=== PATIENT | female | born 1950 | race Hispanic/Latino ===

== ENCOUNTER 2016-07-11 21:51 | Emergency (ER) | payer MEDICARE ==
[2016-07-11 23:19] LABS: Basophils % (Auto) 0.8 % (0.0-1.8); Eosinophils % (Auto) 2.2 % (0.0-4.3); Mean Corpuscular HGB Conc 30 % (30-34); Mean Corpuscular Volume 78 fl (79-97); Platelet Count 285 K/mm3 (140-440); Red Blood Count 4.23 M/mm3 (3.65-5.03); Red Cell Distribution Width 18.1 % (13.2-15.2); White Blood Count 13.1 K/mm3 (4.5-11.0)
[2016-07-11 23:27] LABS: Hematocrit 32.8 % (30.3-42.9); Hemoglobin 9.9 gm/dl (10.1-14.3); Mean Corpuscular Hemoglobin 24 pg (28-32)
[2016-07-11 23:28] LABS: INR 1.89 (0.87-1.13)
[2016-07-11 23:29] LABS: Partial Thromboplastin Time 38.3 Sec. (24.2-36.6)
[2016-07-11 23:43] LABS: Albumin 3.7 g/dL (3.9-5); Albumin/Globulin Ratio 0.9 %; BUN/Creatinine Ratio 22.5; Bilirubin,Total 0.4 mg/dL (0.1-1.2); Calcium 9.1 mg/dL (8.4-10.2); Chloride 101.5 mmol/L (98-107); Potassium 4.2 mmol/L (3.6-5.0); Total Protein 7.8 g/dL (6.3-8.2)
[2016-07-12] MEDS ORDERED: NACL 0.9% 1000 ML 1,000 ML ONE (03:39)
[2016-07-12] MEDS: NACL 0.9% 1000 ML 1,000 ML IV ONE (03:53)
--- NOTE | 2016-07-12 06:49 | Emergency Department Report ---
HPI - General Chief Complaint: GI Bleed - HPI HPI: This is a 65-year-old female who presents to the emergency department with complaint of rectal bleeding seen during bowel movements over the past 24 hours however patient says that she had another bowel movement while in the emergency department and there was no gross blood seen. She was concerned as there was dark red blood with some clots. Patient says she had a colonoscopy 4- 5 years ago with a setter machine, Dr. Maurer, and was told at that time that she had a small internal hemorrhoid. She denies any back pain, abdominal pain, rectal pain, nausea, vomiting or fever. Patient has a history of atrial fibrillation and is on anticoagulation. She also has a history of arthritis, diabetes, hypertension, hypothyroidism and high cholesterol. Primary care doctor is Dr. Delgado. No recent travel or sick contacts at home. She did not take anything for symptoms prior to presentation. ED Past Medical Hx - Past Medical History Previous Medical History?: Yes Hx Hypertension: Yes Hx Congestive Heart Failure: No Hx Diabetes: Yes Hx Arthritis: Yes Hx Asthma: No Hx COPD: No Additional medical history: high cholesterol. hypothyroid. "increased uric acid". tachycardia - Surgical History Past Surgical History?: Yes Hx Appendectomy: Yes Additional Surgical History: hysterectomy - Social History Smoking Status: Never Smoker Substance Use Type: None - Medications Home Medications: Home Medications Medication Instructions Recorded Confirmed Last Taken Type Febuxostat (Nf) [Uloric (Nf)] 40 mg PO DAILY 04/26/14 04/26/14 Unknown History Levothyroxine [Synthroid] 100 mcg PO Q48HR 04/26/14 04/26/14 Unknown History Levothyroxine [Synthroid] 112 mcg PO Q48H 04/26/14 04/26/14 Unknown History Metoprolol [Lopressor TAB] 200 mg PO DAILY 04/26/14 04/26/14 Unknown History Rosuvastatin Calcium [Crestor] 20 mg PO DAILY 04/26/14 04/26/14 Unknown History Valsartan/Hydrochlorothiazide 1 tab PO DAILY 04/26/14 04/26/14 Unknown History [Valsartan-Hctz 160-25 mg] Rivaroxaban [Xarelto] 15 mg PO BIDDIAB 30 Days 05/11/14 Unknown Rx ED Review of Systems ROS: Stated complaint: RECTAL BLEEDING Other details as noted in HPI Comment: All other systems reviewed and negative Constitutional: denies: chills, fever Eyes: denies: eye pain, eye discharge, vision change ENT: denies: ear pain, throat pain Respiratory: denies: cough, shortness of breath, wheezing Cardiovascular: denies: chest pain, palpitations Gastrointestinal: other (Rectal bleed). denies: abdominal pain, nausea, diarrhea Genitourinary: denies: urgency, dysuria, discharge Musculoskeletal: denies: back pain, joint swelling, arthralgia Skin: denies: rash, lesions Neurological: denies: headache, weakness, paresthesias Physical Exam - Physical Exam Vital Signs: Vital Signs 07/11/16 07/11/16 07/12/16 22:12 22:15 03:31 Temperature 97.7 F Pulse Rate 84 83 83 Respiratory 20 16 16 Rate Blood Pressure 127/86 Blood Pressure 130/70 130/70 [Left] O2 Sat by Pulse 98 100 100 Oximetry 07/12/16 05:35 Temperature Pulse Rate 86 Respiratory 18 Rate Blood Pressure Blood Pressure 110/51 [Left] O2 Sat by Pulse 100 Oximetry Physical Exam: GENERAL: The patient is well-developed well-nourished. HEENT: Normocephalic. Atraumatic. Extraocular motions are intact. Patient has moist mucous membranes. Pupils equal reactive to light bilaterally. NECK: Supple. Trachea is midline. CHEST/LUNGS: Clear to auscultation. There is no respiratory distress noted. HEART/CARDIOVASCULAR: Regular. There is no tachycardia. There is no gallop rub or murmur. ABDOMEN: Abdomen is soft, nontender. Patient has normal bowel sounds. There is no abdominal distention. Morbidly obese habitus. SKIN: There is no rash. There is no diaphoresis. NEURO: The patient is awake, alert, and oriented. The patient is cooperative. The patient has no focal neurologic deficits. The patient has normal speech. MUSCULOSKELETAL: There is no tenderness or deformity. There is no limitation range of motion. There is no evidence of acute injury. RECTAL: No lesions seen. No gross blood. Stool positive for guaiac testing. ED Course Vital Signs 07/11/16 07/11/16 07/12/16 22:12 22:15 03:31 Temperature 97.7 F Pulse Rate 84 83 83 Respiratory 20 16 16 Rate Blood Pressure 127/86 Blood Pressure 130/70 130/70 [Left] O2 Sat by Pulse 98 100 100 Oximetry 07/12/16 05:35 Temperature Pulse Rate 86 Respiratory 18 Rate Blood Pressure Blood Pressure 110/51 [Left] O2 Sat by Pulse 100 Oximetry ED Medical Decision Making - Lab Data Result diagrams: 07/11/16 22:36 07/11/16 22:36 - EKG Data -: EKG Interpreted by Ok - EKG Data When compared to previous EKG there are: no significant change Interpretation: other (atrial fibrillation, normal axis, normal rate at 73 bpm, no ST elevation IN) - Medical Decision Making This is a 65-year-old female presents emergency department after a few episodes of rectal bleeding with bowel movements. However the symptoms have stopped since being in the emergency department. She has never had any pain to the abdomen, back, rectum or any other physical complaints. Patient has good follow -up with a setter machine, Dr. Maurer. Rectal exam does not show any gross blood or lesions but is positive for stool on guaiac testing. Patient is already due for a repeat colonoscopy. Vital signs stable. Her labs show some anemia but not at the level requires transfusion. Otherwise there are no significant abnormalities. Patient feels well and has been monitored for many hours in the emergency department. She appears stable for discharge at this time and will follow-up with her setter machine. She'll return to the ER if any worsening of her symptoms or any acute distress. - Differential Diagnosis hemorrhoids, malignancy, anal fissure, diverticulosis Critical Care Time: No Critical care attestation.: If time is entered above; I have spent that time in minutes in the direct care of this critically ill patient, excluding procedure time. ED Disposition Clinical Impression: Rectal bleeding CKD (chronic kidney disease) Qualifiers: Chronic kidney disease stage: unspecified stage Qualified Code(s): N18.9 - Chronic kidney disease, unspecified Disposition: DISCHARGED TO HOME OR SELFCARE Is pt being admited?: No Condition: Undetermined Instructions: Rectal Bleeding (ED), Chronic Kidney Disease (ED) Additional Instructions: Please follow-up with your primary care doctor as well as your setter machine. Return to the emergency department with any worsening of your symptoms or any acute distress. Referrals: ROXANE DELGADO MD [Primary Care Provider] - 3-5 Days Forms: Accompanied Note Time of Disposition: 07:35
[2016-07-12 07:20] VITALS: BP 132/68
== END 2016-07-12 07:35 | disposition home or self-care (01) ==
LOC: ED 21:51
DX: E11.22 Type 2 diabetes mellitus with diabetic chronic kidney disease (principal); I12.9 Hypertensive chronic kidney disease with stage 1 through stage 4 chronic kidney disease, or unspecified chronic kidney disease; N18.9 Chronic kidney disease, unspecified; K62.5 Hemorrhage of anus and rectum; M19.90 Unspecified osteoarthritis, unspecified site; E78.00 Pure hypercholesterolemia, unspecified; E03.9 Hypothyroidism, unspecified
CPT/HCPCS: 36415; 80053; 83690; 85025; 85610; 85730; 86850; 86900; 86901; 93005; 93010; 96360; 96361; 99284; J7030